=== PATIENT | male | born 1950 | race Hispanic/Latino ===

== ENCOUNTER → 2024-10-17 | Outpatient (CLI) | payer OTHER ==
[~2024-10-17] MED LIST: IOHEXOL-350 75 ML VIAL IV ONE
--- NOTE | 2024-10-17 11:02 | HMCIMG ---
CT ABDOMEN W/WO 3 PHASE HISTORY: Alcoholic cirrhosis COMPARISON: None TECHNIQUE: Multiple sequential axial images of the abdomen were obtained from the dome of the diaphragm through iliac crests. Patient was given 75 cc of Omnipaque through intravenous route. Oral contrast was given. Dynamic imaging technique was used. FINDINGS: No pleural effusion is seen bilaterally. There is no evidence of parenchymal disease or pulmonary nodule of the visualized lower lungs. Degenerative changes of the thoracolumbar spine are present. The heart is not enlarged. Liver measures 11 cm. Fatty changes of the liver are noted. There appears to be fluid-filled structure in the gallbladder fossa measuring 17 x 31 mm may be related to gallbladder with gallstone versus cystic structure with gallstone. Clinical correlation is recommended. The liver, spleen, adrenal glands and pancreas are unremarkable. There is no evidence of hydronephrosis bilaterally. No evidence of renal stone is seen. Fecal material is seen in the colon. 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 No bowel obstruction is seen. There are normal size retroperitoneal and mesenteric lymph nodes. No ascites is seen. Atherosclerotic changes are present. Pelvic sidewalls are symmetric bilaterally. Bladder is well distended without wall thickening. IMPRESSION: 1. Fatty changes of the liver are noted. There appears to be fluid-filled structure in the gallbladder fossa measuring 17 x 31 mm may be related to gallbladder with gallstone versus cystic structure with gallstone. Clinical correlation is recommended. Clinical history of gallbladder surgery would be helpful. No bowel obstruction is seen. No ascites is seen. CT was performed with one or more following dose reduction techniques: automated exposure control, adjustment of the mA and kv according to patient's size, or use of a iterative reconstruction technique.
== END | disposition home or self-care (01) ==
LOC: RAH 09:40
PROVIDERS: ATTEND Internal Medicine Gastroenterology
DX: K76.0 Fatty (change of) liver, not elsewhere classified (principal); K70.31 Alcoholic cirrhosis of liver with ascites; N32.89 Other specified disorders of bladder; M47.815 Spondylosis without myelopathy or radiculopathy, thoracolumbar region; I70.90 Unspecified atherosclerosis
CPT/HCPCS: 74170; Q9967